=== PATIENT | female | born 1965 | race Hispanic/Latino ===

== ENCOUNTER 2018-01-01 16:47 | Emergency (ER) | payer OTHER ==
[~2018-01-01] VITALS: Ht 172.7 cm; Wt 90.7 kg
[~2018-01-01 16:47] MED LIST: ANTIVERT 25 MG25 MG PO; AUGMENTIN 875-1 EACH PO; BIOTIN1000 MCG PO; CILOXAN5 ML OPH; ERYTHROMYCIN1 GM OPH; FLONASE ALLERG9.9 ML NAS; IBUPROFEN800 M1 PO; MULTIVITAMIN1 TAB PO
[2018-01-01 16:52] VITALS: BP 111/75
[2018-01-01] MEDS ORDERED: IBUPROFEN800 M1 PO (17:09)
--- NOTE | 2018-01-01 17:09 | ED GENERAL ADULT ---
History of Present Illness General Chief Complaint: Lower Extremity Injury Stated Complaint: LEFT KNEE PAIN Source: patient Exam Limitations: no limitations Vital Signs & Intake/Output Vital Signs & Intake/Output Vital Signs Date Time Temp Pulse Resp B/P B/P Pulse O2 O2 Flow FiO2 Mean Ox Delivery Rate 01/01 1738 96.0 01/01 1652 96.0 72 15 111/75 96 Room Air Room Air Allergies Coded Allergies: No Known Allergies (01/01/18) Reconcile Medications Amoxicillin/Potassium Clav (Augmentin 875-125 Tablet) 875 MG-125 MG TABLET 1 TAB PO BID otitis Fluticasone Propionate (Flonase Allergy Relief) 50 MCG/ACTUATION SPRAY.SUSP 2 SPRAY AZALIA DAILY RHINITIS Ibuprofen 800 MG TABLET 1 TAB PO TID PRN PAIN Triage Note: PT TO ED FOR C/C OF PAIN BEHIND LEFT KNEE THAT HAPPENED AROUND 0900 TODAY AFTER WALKING UP A [place] AND HEARD A POP. Triage Nurses Notes Reviewed? yes Onset: Abrupt Duration: day(s): (1), changing over time, continues in ED Timing: single episode today Injury Environment: home Severity: moderate, severe Severity Numbers: 7 No Modifying Factors: none LMP (ages 10-50): unknown : No Patient currently breastfeeds: No HPI: 52-year-old female with no past medical history of presents for evaluation of pain in her left posterior knee. Patient states that pain started today after she was running up a hill she felt a pop in the back of her knee around the popliteal fossa that associated with pain. Patient states that the pain has been persistent. It is worse with movement gets better at rest. No swelling redness. There is no direct trauma. She denies any pain in the front of her knee no hip pain or ankle pain no numbness or tingling. There was no fall. She is not taken any medicine for pain. Past History Travel History Traveled to [place] past 21 day No Medical History Any Pertinent Medical History? see below for history Neurological: NONE EENT: NONE Cardiovascular: NONE Respiratory: NONE Gastrointestinal: NONE Hepatic: NONE Renal: NONE Musculoskeletal: NONE Psychiatric: NONE Endocrine: NONE Blood Disorders: NONE Cancer(s): NONE DENTURES LAB TECHNICIAN/Reproductive: NONE Tetanus Vaccine: 10/09/17 Surgical History Surgical History: non-contributory Psychosocial History What is your primary language Hebrew Tobacco Use: Never used ETOH Use: denies use Illicit Drug Use: denies illicit drug use Family History Hx Contributory? No Review of Systems Review of Systems Constitutional: Reports: no symptoms. EENTM: Reports: no symptoms. Respiratory: Reports: no symptoms. Cardiovascular: Reports: no symptoms. GI: Reports: no symptoms. Genitourinary: Reports: no symptoms. Musculoskeletal: Reports: joint pain, muscle pain, muscle stiffness. Skin: Reports: no symptoms. Neurological/Psychological: Reports: no symptoms. Hematologic/Endocrine: Reports: no symptoms. Immunologic/Allergic: Reports: no symptoms. All Other Systems: Reviewed and Negative Physical Exam Physical Exam General Appearance: well developed/nourished, no apparent distress, alert, awake Head: atraumatic, normal appearance Eyes: Bilateral: normal appearance, EOMI. Ears, Nose, Throat: hearing grossly normal Neck: normal inspection, supple, full range of motion Respiratory: no respiratory distress Peripheral Pulses: 2+ tibialis posterior (R), 2+ tibialis posterior (L), 2+ dorsalis pedis (R), 2+ dorsalis pedis (L) Back: normal inspection, normal range of motion Extremities: normal inspection, normal range of motion, THERE IS TENDERNESS TO PALPATION IN THE POPLITEAL FOSSA. nO SWELLING OR BRUISING. fULL RANGE OF MOTION OF THE KNEE IS INTACT. nO PAIN WITH MEDIAL OR LATERAL STRESS. nEGATIVE ANTERIOR DRAWER NEGATIVE Anthony'S. pATIENT IS ABLE TO WALK AND BEAR WEIGHT WITH PAIN. nEUROVASCULAR SUPPLY INTACT FULL RANGE OF MOTION OF THE LEFT HIP AND ANKLE WITHOUT PAIN Neurologic/Psych: no motor/sensory deficits, awake, alert, oriented x 3, normal gait Skin: intact, normal color, warm/dry Lymphatic: no anterior cervical anh Core Measures ACS in differential dx? No CVA/TIA Diagnosis: No Sepsis Present: No Sepsis Focused Exam Completed? No Progress Differential Diagnoses I considered the following diagnoses in my evaluation of the patient: [Knee sprain, ligamentous injury, fracture, effusion, osteoarthritis] Plan of Care: Orders Procedure Date/time Status Durable Medical Equipment 01/01 1707 Active Patient seen and evaluated. She has pain in the left popliteal fossa area. No bruising or erythema. She felt a pop after running up a hill today. Full range of motion intact there is no direct trauma. Neurovascular supply intact. Patient is able to walk and bear weight. Offered patient to get an x-ray however she declines. She was medicated with ibuprofen and is feeling better. She was given crutches and a knee immobilizer. Rest ice elevation compression. Follow-up with orthopedics continue ibuprofen. Discussed return precautions. Patient agrees the plan Initial ED EKG: none Departure Departure Disposition: HOME OR SELF CARE Condition: Stable Clinical Impression Primary Impression: Left knee sprain Qualifiers: Encounter type: initial encounter Involved ligament of knee: unspecified ligament Qualified Code: S83.92XA - Sprain of unspecified site of left knee, initial encounter Referrals: Patient Has No Primary Care Dr (PCP/Family) Luis Taylor MD Additional Instructions: Rest, avoid excessive weightbearing walking and physical activity. Wear knee immobilizer walk with crutches. Use ibuprofen 800 mg every 8 hours with food as needed for pain. Tylenol 1000 mg can also be used every 6 hours as needed. Make a follow-up appointment with her primary care doctor or provided orthopedic doctor Dr. Taylor as soon as possible for recheck. Monitor symptoms. Worsening pain and swelling redness or any other concerns return immediately. Departure Forms: Customer Survey General Discharge Information Prescriptions: Current Visit Scripts Ibuprofen 1 TAB PO TID PRN PAIN #30 TAB Critical Care Note Critical Care Note Critical Care Time: non-applicable
== END 2018-01-01 17:38 ==
LOC: ERH 16:47
DX: S83.92XA Sprain of unspecified site of left knee, initial encounter (principal); X58.XXXA Exposure to other specified factors, initial encounter; Y93.02 Activity, running; Y92.89 Other specified places as the place of occurrence of the external cause